=== PATIENT | male | born 2000 | race Hispanic/Latino ===

== ENCOUNTER 2023-08-10 14:04 | Observation (INO) | payer OTHER ==
[~2023-08-10] VITALS: Ht 167.6 cm; Wt 108.0 kg
[2023-08-10] MEDS ORDERED: LORAZEPAM INJ 2 MG/ML VIAL IV ONE (14:30)
[2023-08-10] MEDS ORDERED: FAMOTIDINE 20 MG/2 ML VIAL IV STA (14:35)
[2023-08-10] MEDS ORDERED: ONDANSETRON HCL INJ 2MG/ML 2ML 2 MG/ML VIAL IV STA (14:36)
[2023-08-10] MEDS ORDERED: LORAZEPAM INJ 2 MG/ML VIAL ONE (14:48)
[2023-08-10] MEDS ORDERED: ONDANSETRON HCL INJ 2MG/ML 2ML 2 MG/ML VIAL ONE (14:48)
[2023-08-10] MEDS ORDERED: SODIUM CHLORIDE 0.9% 1000ML 1,000 ML ONE ×2 (14:48→16:51)
[2023-08-10] MEDS ORDERED: FAMOTIDINE 20 MG/2 ML VIAL IV ONE (14:48)
[2023-08-10] MEDS: SODIUM CHLORIDE 0.9% 1000ML 1,000 ML IV SCH ×2 (15:01→16:50)
[2023-08-10] MEDS ORDERED: IOPAMIDOL 370 MG/ML 100 ML INFUS..BTL INJ ONE (15:02)
[2023-08-10] MEDS ORDERED: SODIUM CHLORIDE FLUSH 10 ML SYR INJ PRN (16:45)
[2023-08-10] MEDS ORDERED: ASPIRIN 325 MG TAB PO ONE (16:45)
[2023-08-10] MEDS ORDERED: ASPIRIN 325 MG TAB ONE (16:51)
[2023-08-10 18:14] VITALS: BP 144/84; PULSE 88; RESP 20; TEMP 98.1; O2SAT 98
[2023-08-10 18:24] VITALS: BP 144/84; PULSE 88; RESP 20; TEMP 98.1; O2SAT 98
[2023-08-10 18:49] VITALS: BP 144/84; PULSE 88; RESP 20; TEMP 98.1; O2SAT 98
[2023-08-10 19:55] VITALS: BP 150/92; PULSE 97; RESP 18; TEMP 97.7; O2SAT 98
[2023-08-10 21:00] VITALS: BP 150/92; PULSE 97; RESP 18; TEMP 97.7; O2SAT 98
[2023-08-10] MEDS ORDERED: ACETAMINOPHEN 325 MG TAB PO PRN (21:30)
[2023-08-10] MEDS ORDERED: MELATONIN 5 MG TABLET PO PRN (21:30)
[2023-08-10] MEDS ORDERED: ONDANSETRON HCL INJ 2MG/ML 2ML 2 MG/ML VIAL IV PRN (21:30)
[2023-08-11] VITALS (11 sets, daily range): BP systolic 131–155; BP diastolic 75–96; PULSE 72–98; RESP 16–20; TEMP 97–98.8; O2SAT 95–99
[2023-08-11 00:57] LABS: TROPONIN I 0.024 ng/mL (0-0.300)
[2023-08-11 06:58] LABS: BASOPHILS # (AUTO) 0.1 (0.0-0.1); BASOPHILS % 1.3 % (0.0-1.0); EOSINOPHILS # (AUTO) 0.9 (0.0-0.4); HEMATOCRIT 44.5 % (38.2-49.6); HEMOGLOBIN 14.7 g/dL (14.0-18.0); LYMPHOCYTES # (AUTO) 2.4 (1.0-3.2); LYMPHOCYTES % 30.4 % (18.0-39.1); MEAN CORPUSCULAR HEMOGLOBIN 30.6 pg (28-32); MEAN CORPUSCULAR VOLUME 92.7 fL (81-99); MONOCYTES # (AUTO) 0.7 (0.2-0.8); NEUTROPHILS # (AUTO) 3.8 (2.1-6.9); NEUTROPHILS % 47.9 % (38.7-80.0); PLATELET COUNT 259 x10e3/uL (140-360); RED CELL DISTRIBUTION WIDTH 12.9 % (11.7-14.4); WHITE BLOOD COUNT 7.93 x10e3/uL (4.8-10.8)
[2023-08-11 07:43] LABS: ANION GAP 13.4 mmol/L (8-16); CALCIUM 9.2 mg/dL (8.4-10.2); CREATININE, SERUM 1.04 mg/dL (0.72-1.25); POTASSIUM 4.4 mmol/L (3.5-5.1)
[2023-08-11 07:49] LABS: TROPONIN I 0.014 ng/mL (0-0.300)
[2023-08-11] MEDS: SODIUM CHLORIDE 0.9% 1000ML 1,000 ML IV SCH ×3 (09:21→16:24)
[2023-08-11] MEDS ORDERED: DOCUSATE SODIUM 100 MG CAP PO PRN (12:30)
[2023-08-11] MEDS ORDERED: POTASSIUM CHLORIDE 20 MEQ TAB CR PO PRN (12:30)
[2023-08-11] MEDS ORDERED: DIPHENHYDRAMINE HCL 25 MG CAP PO PRN (12:30)
[2023-08-11] MEDS ORDERED: DEXTROSE 50% SYRINGE 50 ML IV PRN (12:30)
[2023-08-11] MEDS ORDERED: HYDRALAZINE HCL 20 MG/ML VIAL IV PRN (12:30)
[2023-08-11] MEDS ORDERED: LIDOCAINE 4% PATCH TP PRN (12:30)
[2023-08-11] MEDS ORDERED: SIMETHICONE 80 MG CHEW PO PRN (12:30)
[2023-08-11] MEDS ORDERED: BENZONATATE 100 MG CAP PO PRN (12:30)
[2023-08-11] MEDS ORDERED: MELATONIN 5 MG TABLET PO PRN (12:30)
[2023-08-11] MEDS ORDERED: ONDANSETRON HCL INJ 2MG/ML 2ML 2 MG/ML VIAL IV PRN (12:30)
[2023-08-11] MEDS ORDERED: ALBUTEROL/IPRATROPIUM 3 ML NEB NEB PRN (12:30)
[2023-08-11] MEDS ORDERED: ACETAMINOPHEN 325 MG TAB PO PRN (12:30)
[2023-08-11] MEDS ORDERED: ATORVASTATIN 40 MG TAB PO SCH (21:00)
[2023-08-12] VITALS: BP 124/69; PULSE 73; RESP 20; TEMP 97.9; O2SAT 100
[2023-08-12 04:00] VITALS: BP 121/68; PULSE 81; RESP 20; TEMP 97.7; O2SAT 97
[2023-08-12 05:59] LABS: BASOPHILS # (AUTO) 0.1 (0.0-0.1); BASOPHILS % 0.7 % (0.0-1.0); EOSINOPHILS # (AUTO) 0.7 (0.0-0.4); EOSINOPHILS % 10.6 % (0.0-6.0); HEMATOCRIT 43.3 % (38.2-49.6); HEMOGLOBIN 14.7 g/dL (14.0-18.0); LYMPHOCYTES # (AUTO) 1.8 (1.0-3.2); LYMPHOCYTES % 26.9 % (18.0-39.1); MEAN CORPUSCULAR HEMOGLOBIN 31.3 pg (28-32); MEAN CORPUSCULAR HGB CONC 33.9 g/dL (31-35); MEAN CORPUSCULAR VOLUME 92.3 fL (81-99); MONOCYTES # (AUTO) 0.4 (0.2-0.8); MONOCYTES % 6.6 % (4.4-11.3); NEUTROPHILS # (AUTO) 3.7 (2.1-6.9); NEUTROPHILS % 54.8 % (38.7-80.0); PLATELET COUNT 254 x10e3/uL (140-360); RED BLOOD COUNT 4.69 x10e6/uL (4.3-5.7); RED CELL DISTRIBUTION WIDTH 12.6 % (11.7-14.4); WHITE BLOOD COUNT 6.68 x10e3/uL (4.8-10.8)
[2023-08-12 06:35] LABS: ANION GAP 14.9 mmol/L (8-16); CALCIUM 9.4 mg/dL (8.4-10.2); CREATININE, SERUM 0.81 mg/dL (0.72-1.25); POTASSIUM 3.9 mmol/L (3.5-5.1)
[2023-08-12] MEDS: SODIUM CHLORIDE 0.9% 1000ML 1,000 ML IV SCH ×2 (07:00→15:00)
[2023-08-12 07:12] LABS: CREATINE KINASE 296 IU/L (30-200)
[2023-08-12] MEDS ORDERED: PANTOPRAZOLE SOD 40 MG TABEC PO SCH (07:30)
[2023-08-12 07:34] VITALS: PULSE 82; RESP 16; O2SAT 92
[2023-08-12 08:00] VITALS: BP 116/69; PULSE 83; RESP 19; TEMP 98.1; O2SAT 98
[2023-08-12] MEDS ORDERED: ASPIRIN 81 MG ENTERIC COATED PO SCH (09:00)
[2023-08-12 09:11] VITALS: BP 116/69; PULSE 83; RESP 19; TEMP 98.1; O2SAT 98
[2023-08-12 12:42] VITALS: BP 128/72; PULSE 82; RESP 19; TEMP 98; O2SAT 99
[2023-08-12] MEDS ORDERED: ONDANSETRON HCL 4 MG ORAL DISINTEGRATING TAB PO PRN (13:00)
[2023-08-12 15:10] LABS: TROPONIN I < 0.05 ng/mL (0.0-0.40)
== END 2023-08-12 16:04 | disposition home or self-care (01) ==
LOC: FSED 14:08 → ERHOLD 16:38 → MED/SURG 17:43
PROVIDERS: ADMIT Internal Medicine; ATTEND Internal Medicine
DX: F14.10 Cocaine abuse, uncomplicated (principal); R07.89 Other chest pain; M62.82 Rhabdomyolysis; F19.10 Other psychoactive substance abuse, uncomplicated; R11.2 Nausea with vomiting, unspecified; R00.0 Tachycardia, unspecified; E78.5 Hyperlipidemia, unspecified; E66.01 Morbid (severe) obesity due to excess calories; Z68.38 Body mass index [BMI] 38.0-38.9, adult; Z71.3 Dietary counseling and surveillance; Z71.82 Exercise counseling
CPT/HCPCS: 36415 ×2; 71275; 74174; 80048 ×2; 80053; 80061; 80307; 81003; 82550 ×2; 82553; 84484 ×3; 85025 ×3; 93005; 94799 ×2; 96374; 96375; 99284; G0378 ×3; J2060; J2405; J7030 ×2; Q9967; S0164